=== PATIENT | female | born 1950 | race Caucasian/White ===

== ENCOUNTER 2021-05-04 14:29 | Emergency (ER) | payer OTHER, MEDICARE, SELFPAY ==
--- NOTE | ~2021-05-04 | CT_ITS ---
EXAMINATION: CT HEAD WITHOUT CONTRAST CLINICAL INFORMATION: Trauma COMPARISON: None TECHNIQUE: Contiguous axial imaging was performed from the skull base to vertex without intravenous administration of contrast. Additional 2-D coronal and sagittal reformatted images are generated on the CT workstation and uploaded to PACS. This CT examination was performed using dose optimization techniques as appropriate, variously including the following: *Automated exposure control *Adjustment of mA and/or kV according to patient size (this includes techniques or standardized protocols for targeted exams where dose is matched to indication/reason for exam; i.e. extremities or head) *Use of iterative reconstruction technique DLP: 768 mGy-cm FINDINGS: There is accentuated decreased attenuation in the right cerebral white matter at the centrum semiovale and right periventricular region. There is no cortical involvement. No mass effect on the right lateral ventricle and no midline shift. A benign bulky calcification is present in the right white matter at right ankle with the superolateral ventricle and measuring approximately 5 x 8 mm. There are some other scattered decreased attenuation in the left periventricular white matter likely chronic small vessel ischemic changes. There is no visible acute territorial infarct or visible mass lesion on this noncontrast exam. There is no intracranial hemorrhage or hematoma. No hydrocephalus. There are accentuated cortical sulci and fissures and cisterns representing mild to moderate atrophic changes. The calvarium appears intact. There is no pneumocephalus or orbital emphysema. The visualized sinuses and middle ears and mastoid air cells show no significant mucosal thickening. There are no air-fluid levels. Results and recommendation called to Bren Mayberry PA-C in the Emergency Department at [address]/CT head/brain wo con IMPRESSION: 1. Nonspecific decreased attenuation right cerebral white matter. Findings may related to chronic small vessel ischemic changes or other non-specific white matter disease. The possibility of occult glial lesion or vascular malformation cannot be excluded. Recommend further assessment with MRI without and with gadolinium contrast. 2. Otherwise, no acute intracranial abnormality. No hemorrhage, hematoma, mass effect, or hydrocephalus.
--- NOTE | ~2021-05-04 | CT_ITS ---
EXAMINATION: CT CERVICAL SPINE WITHOUT CONTRAST CLINICAL INFORMATION: Trauma, pain COMPARISON: CT head 05/04/2021 TECHNIQUE: Multidetector volumetric CT imaging of the cervical spine is performed without contrast in the axial plane. Additional 2D reformatted coronal and sagittal images are generated on the CT workstation and uploaded to PACS. This CT examination was performed using dose optimization techniques as appropriate, variously including the following: *Automated exposure control *Adjustment of mA and/or kV according to patient size (this includes techniques or standardized protocols for targeted exams where dose is matched to indication/reason for exam; i.e. extremities or head) *Use of iterative reconstruction technique DLP: 342 mGy-cm FINDINGS: There is no vertebral compression fracture, fracture line, spondylolisthesis, or prevertebral soft tissue swelling. The craniocervical junction appears normal. The odontoid appears intact. There is straightening of the cervical lordosis. There are multilevel degenerative facet changes. No perched facet. There are degenerative disc changes greatest at C5-C6 and C6-C7 with disc narrowing and vertebral spurring. There are also degenerative changes between anterior arch C1 and the dens. There is no apical pneumothorax. CT/CT cervical spine wo con IMPRESSION: 1. No acute bony abnormality or prevertebral soft tissue swelling. 2. Multilevel facet degeneration. Degenerative disc changes greatest at C5-C6 and C6-C7.
--- NOTE | ~2021-05-04 | CT_ITS ---
EXAMINATION: CT THORACIC SPINE WITHOUT CONTRAST CLINICAL INFORMATION: Trauma, pain COMPARISON: CT head and CT cervical spine 05/04/2021 TECHNIQUE: Multidetector volumetric CT imaging of the thoracic spine is performed without contrast in the axial plane. Additional 2D reformatted coronal and sagittal images are generated on the CT workstation and uploaded to PACS. This CT examination was performed using dose optimization techniques as appropriate, variously including the following: *Automated exposure control *Adjustment of mA and/or kV according to patient size (this includes techniques or standardized protocols for targeted exams where dose is matched to indication/reason for exam; i.e. extremities or head) *Use of iterative reconstruction technique DLP: 966 mGy-cm FINDINGS: There is no thoracic vertebral compression fracture, fracture line, spondylolisthesis, or paraspinal soft tissue swelling. No paraspinal hematoma demonstrated. No destructive process. Thoracic kyphosis appears normal. There are mild multilevel vertebral body spurring. No perched facet. There is no pneumothorax seen. No pleural effusion. CT/CT thoracic spine wo con IMPRESSION: No acute bony abnormality or prevertebral soft tissue swelling.
[2021-05-04 14:37] VITALS: BP 168/94; BP 173/87; PULSE 100; PULSE 103; RESP 16; TEMP 36.5; O2SAT 97; O2SAT 99; BMI 33.0
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
== END 2021-05-04 18:35 | disposition home or self-care (01) ==
PROVIDERS: Emergency Provider Emergency Medicine
DX: H60.332 Swimmer's ear, left ear (principal); G44.309 Post-traumatic headache, unspecified, not intractable; M54.2 Cervicalgia; M54.5 Low back pain; Z79.899 Other long term (current) drug therapy
CPT/HCPCS: 70450; 72125; 72128; 99283; 99284